=== PATIENT | male | born 1960 | race Caucasian/White ===

== ENCOUNTER 2020-02-12 11:10 | Observation (INO) | payer MEDICARE, SELFPAY ==
--- NOTE | ~2020-02-12 | XR_ITS ---
EXAMINATION: XR chest 1V portable DATE: 02/12/2020 14:25 INDICATION: Infection TECHNIQUE: frontal view of the chest was obtained. COMPARISON: None FINDINGS: Right lung volume is decreased with elevation of the right hemidiaphragm. There is blunting at the ri ght costophrenic angle but the more caudal cardiophrenic angle appears to remain sharp which would ar mark against pleural effusion. Curvilinear discoid atelectasis/scarring at the medial right lower lung zone. Left lung is clear. No pulmonary edema, pneumothorax or left-sided pleural effusion. The cardi omediastinal silhouette is normal. IMPRESSION: 1. Decreased right lung volume with blunting at the costophrenic angle. Could not exclude a small loc ulated right pleural effusion however appearance suggests possibility of prior partial right pneumone ctomy. Correlate with clinical history. 2. Otherwise clear lungs. Reviewed, dictated and finalized at location A. ERTY CONDITION ASSESSOR IMPRESSION: 1. Decreased right lung volume with blunting at the costophrenic angle. Could n ot exclude a small loculated right pleural effusion however appearance suggests possibility of prior partial right pneumonectomy. Correlate with clinical hist ory. 2. Otherwise clear lungs.
[2020-02-12 11:21] VITALS: BP 145/76; PULSE 103; RESP 20; TEMP 36.6; O2SAT 96
[2020-02-12 11:27] LABS: Glucose Point of Care 405 (65-105)
[2020-02-12 11:38] LABS: Basophils Absolute Auto 0.1 K/mm3 (0.0-0.1); Basophils Percent Auto 0.5 % (0.2-1.2); Eosinophils Absolute Auto 0.2 K/mm3 (0-0.3); Eosinophils Percent Auto 1.2 % (0-4.4); Hematocrit 40.3 % (42.0-52.0); Hemoglobin 13.6 g/dL (14.0-18.0); Immature Granulocyte Absolute 0.13 K/mm3 (0.00-0.031); Lymphocytes Absolute Auto 1.27 K/mm3 (0.9-3.2); Lymphocytes Percent Auto 9.7 % (18.3-44.2); Mean Corpuscular HGB Conc 33.7 g/dl (32-36); Mean Corpuscular Hemoglobin 27.4 pg (26-34); Mean Corpuscular Volume 81.3 fl (80-100); Mean Platelet Volume 9.7 fl (7.4-10.4); Monocytes Absolute Auto 1.3 K/mm3 (0.1-0.6); Neutrophils Absolute Auto 10.2 K/mm3 (1.3-6.7); Neutrophils Percent Auto 77.6 % (45.5-73.1); Platelet Count Result 302 k/mm3 (150-375); Red Blood Count 4.96 M/mm3 (4.6-6.20); Red Cell Distribution Width 14.1 % (11.5-14.5); White Blood Count 13.2 K/mm3 (4.5-10.0)
[2020-02-12 11:52] LABS: Beta-Hydroxybutyrate/Acetoacetate 0.06 mmol/L (0.02-0.27)
[2020-02-12 11:54] LABS: Alanine Aminotransferase 27 U/L (4-50); Albumin Level 3.8 g/dL (3.5-5.1); Alkaline Phosphatase 147 U/L (38-126); Anion Gap 10 mmol/L (8-16); Aspartate Amino Transferase 30 U/L (17-59); Bilirubin,Total 0.8 mg/dL (0.2-1.3); Blood Urea Nitrogen 17 mg/dL (9-20); Calcium 8.9 mg/dL (8.4-10.2); Carbon Dioxide 27 mmol/L (22-30); Chloride 94 mmol/L (98-107); Estimated CRCL calculation 99 ml/min; Estimated Glomerular Filt Rate > 60; Glucose 386 mg/dL (75-110); Magnesium 2.2 mg/dL (1.6-2.3); Phosphorus 2.4 mg/dL (2.5-4.5); Potassium 3.9 mmol/L (3.4-5.0); Sodium 131 mmol/L (137-145)
[2020-02-12 12:20] LABS: Prothrombin Time 13.8 Seconds (11.1-14.7)
[2020-02-12 12:21] LABS: Lactic Acid Reflex 2.2 mmol/L (0.7-2.1); Partial Thromboplastin Time 36.3 SECONDS (22.3-36.8)
[2020-02-12 12:47] LABS: CRP 30.5 mg/dL (<1.0)
--- NOTE | 2020-02-12 14:09 | ED.GENADULT ---
HPI - General Adult General Chief complaint: Wound/Laceration Stated complaint: leg wound/dm Time Seen by Provider: 02/12/20 13:58 History of Present Illness HPI narrative: Patient is a 59-year-old male who presents to the ER with a wound to his right lower extremity with infection. Reports its been worsening over the week and has been draining yellow/green fluid. Pain radiates up his leg to his side. Reports subjective fevers but no chills. Has not been on any antibiotics. Had something similar occur when he needed his left leg amputated. Related Data Home Medications Medication Instructions Recorded Confirmed amlodipine 10 mg PO DAILY 02/12/20 02/12/20 gabapentin 800 mg PO DAILY 02/12/20 02/12/20 gemfibrozil 600 mg PO DAILY 02/12/20 02/12/20 linagliptin [Tradjenta] 5 mg PO DAILY 02/12/20 02/12/20 lisinopril 20 mg PO DAILY 02/12/20 02/12/20 metformin 1,000 mg PO BID 02/12/20 02/12/20 Allergies Allergy/AdvReac Type Severity Reaction Status Date / Time Sulfa (Sulfonamide Allergy Severe Unknown Verified 02/12/20 18:07 Antibiotics) Review of Systems Review of Systems: All systems reviewed & are unremarkable except as noted in HPI and below Constitutional: Constitutional: Denies chills, Reports fever(s) and Denies weakness Cardiovascular: Cardiovascular: Denies chest pain, Denies rapid heart rate and Denies radiating jaw, neck or arm pain Respiratory: Respiratory: Denies cough and Denies dyspnea Gastrointestinal: Gastrointestinal: Denies abdominal pain, Denies nausea and Denies vomiting Integumentary/Breasts: Skin/Breast: Reports erythema, Reports rash and Reports skin ulcer PMFSH Past Medical History Medical History (Updated 02/12/20 @ 18:55 by Pramod Peter MD) Above knee amputation of left lower extremity Diabetes Hypertension Surgical History Surgical History (Updated 02/12/20 @ 18:53 by Pramod Peter MD) History of appendectomy History of chest tube placement Family History Family History (Updated 02/12/20 @ 18:11 by Lisset Marquez RN) Father Back disorder Mother Colonic hemorrhage Social History Social History Smoking packs per day: 0.5 Smoking cigarettes per day: 10.0 Years smoked: 48 Smoking pack-years: 24.00 Smoking status: Light tobacco smoker Tobacco type: cigarettes Second hand tobacco smoke exposure: Yes Alcohol intake: current Drinks per week: 1 Substance use: never Spiritual care concerns: No Exam Narrative: Exam Narrative: GENERAL: Well-appearing, well-nourished, and in no acute distress. HEAD: Normocephalic, atraumatic. CHEST: Clear to auscultation. No respiratory distress. HEART: Regular rate and rhythm. Normal peripheral pulses. ABDOMEN: Soft, nontender, nondistended. EXTREMITIES: Left AKA. Right lower extremity with cellulitis and edema below the knee with an ulceration over the mesa that is weeping. SKIN: Warm, dry, cellulitis right lower extremity.. NEURO: Alert and oriented x3. PSYCH: Normal mood and affect. Course Course Emergency Course: Admit to the hospitalist service. Antibiotics ordered. Vital Signs Vital signs: Vital Signs Temperature 97.8 F 02/12/20 11:21 Pulse Rate 103 H 02/12/20 11:21 Respiratory Rate 20 02/12/20 11:21 Blood Pressure 145/76 H 02/12/20 11:21 Pulse Oximetry 96 02/12/20 11:21 Temperature 99.8 F H 02/12/20 17:54 Pulse Rate 96 02/12/20 17:54 Respiratory Rate 27 H 02/12/20 17:54 Blood Pressure 143/69 H 02/12/20 17:54 Pulse Oximetry 98 02/12/20 17:54 Medical Decision Making Vital Signs Vital Signs: Vital Signs Temperature 97.8 F 02/12/20 11:21 Pulse Rate 103 H 02/12/20 11:21 Respiratory Rate 20 02/12/20 11:21 Blood Pressure 145/76 H 02/12/20 11:21 Pulse Oximetry 96 02/12/20 11:21 Temperature 99.8 F H 02/12/20 17:54 Pulse Rate 96 02/12/20 17:54 Respiratory Rate 27 H 02/12/20 17:54 Blood Pressure 143/69 H 02/12/20 17:54 Pul
[2020-02-12] MEDS: MORPHINE SULFATE (*CRX) 4 MG/ML INJ IV PUSH ×3 (14:24→20:09)
[2020-02-12 15:06] LABS: Reflex Lactic Acid Yes or No Add Lactic
[2020-02-12 15:58] LABS: Lactic Acid 1.4 mmol/L (0.7-2.1)
[2020-02-12 16:04] LABS: Add Urine Microscopic? YES; Appearance Urine Clear (Clear); Bilirubin Urine Negative (Negative); Blood Urine Negative (Negative); Color Urine Yellow (Yellow); Glucose Urine UA 3+ mg/dL (Negative); Ketones Urine Negative (Negative); Leukocyte Esterase Ur Negative LEU/UL (Negative); Mucus Urine Rare /lpf; Nitrate Urine Negative (Negative); Protein Urine 2+ mg/dL (Negative); Specific Grav Ur 1.029 (1.001-1.035); Urobilinogen Urine Negative mg/dL (<2.0); WBC Urine 0-3 /hpf
--- NOTE | 2020-02-12 17:40 | ADMGEN ---
This patient, Marek Mar, was admitted to Medical Room 241-. Patient/family oriented to hospital policies and general routines including ID bracelet, bed and alarms, visiting hours, pain management, procedures, bathroom and other care routines, personal items, smoking policy, room service/diet, and visiting hours. Information on how to activate the Rapid Response Team has been discussed. Patient/Family are encouraged to report perceived risks to care and to ask questions if they do not understand what they are told or what they should do.
[2020-02-12 17:54] VITALS: BP 143/69; PULSE 96; RESP 27; TEMP 37.7; O2SAT 98; BMI 29.7
[2020-02-12 17:55] LABS: Glucose Point of Care 307 (65-105)
[2020-02-12 18:32] VITALS: PULSE 94; RESP 20; O2SAT 94
[2020-02-12 21:36] LABS: Glucose Point of Care 269 (65-105)
[2020-02-12 22:00] VITALS: BP 132/73; PULSE 89; RESP 18; TEMP 36.9; O2SAT 98
--- NOTE | 2020-02-12 22:00 | PM.EVENT ---
Event Note Event Note Event Note: I received a call from the patient's nurse at around 22:00 with reports that the patient was insisting on signing out against medical advice. I informed the nurse that I would be down to see the patient in 15 minutes in hopes of convincing him to stay as he really needs IV antibiotics however he was adamant that he was leaving and signed AMA paperwork before I arrived. I did not see or evaluate the patient prior to him leaving.
--- NOTE | 2020-02-12 22:52 | PC.NURSE ---
[id number] pt signing out AMA, encouraged pt to stay for the IV antibiotics. pt refusing and is insisting on leaving. Sasha evanssenior data warehouse architect and Sara Ortiz both notified.
== END 2020-02-12 22:35 | disposition left against medical advice (07) ==
LOC: ANHED 14:27 → ANH2MED 17:32
PROVIDERS: Emergency Medicine Emergency Medical Services; Admitting Provider Student in an Organized Health Care Education/Training Program; Emergency Provider Emergency Medicine; PCP Physician Assistant; Visit Provider Student in an Organized Health Care Education/Training Program
DX: L03.115 Cellulitis of right lower limb (principal); I10 Essential (primary) hypertension; R50.9 Fever, unspecified; E11.9 Type 2 diabetes mellitus without complications; Z89.612 Acquired absence of left leg above knee; Z79.84 Long term (current) use of oral hypoglycemic drugs; Z79.899 Other long term (current) drug therapy; Z87.891 Personal history of nicotine dependence; Z53.29 Procedure and treatment not carried out because of patient's decision for other reasons
CPT/HCPCS: 36415; 71045; 80053; 81001; 82010; 82948; 83605; 83735; 84100; 85025; 85610; 85730; 86140; 87040; 87070; 87147; 87186; 87205; 96365; 96375; 96376; 99285; G0378; J0743; J2270; J3370